=== PATIENT | female | born 1985 | race Caucasian/White ===

== ENCOUNTER 2020-04-30 12:43 | Emergency (ER) | payer MEDICAID, SELFPAY ==
[~2020-04-30] VITALS: Ht 162.6 cm; Wt 170.1 kg
[2020-04-30 12:53] VITALS: BP 139/70
[2020-04-30 14:30] VITALS: BP 139/70
== END 2020-04-30 14:30 | disposition home or self-care (01) ==
LOC: MED 12:43 → EEVIPCON 12:43 → MED 14:30
DX: U07.1 COVID-19 (principal); I10 Essential (primary) hypertension; E11.9 Type 2 diabetes mellitus without complications
CPT/HCPCS: 99283; U0003

== ENCOUNTER 2022-09-22 13:27 | Emergency (ER) | payer MEDICAID ==
[~2022-09-22] VITALS: Ht 157.5 cm; Wt 179.6 kg
[2022-09-22 13:28] VITALS: BP 118/78
--- NOTE | 2022-09-22 13:30 | NUR ---
36/F BIBA FROM HOME C/O SOB X 5DAYS. PT STATES GENERALIZED BODYACHE. PT REPORTS TESTING POSITIVE FOR COVID 5 DAYS AGO. PT DENIES COUGH OR FEVER. AFEBRILE AT TRIAGE. VITALS STABLE. AAO4. PMH:CARI DOSHI
[2022-09-22] MEDS ORDERED: PROM118S5 PO (14:46)
[2022-09-22] MEDS ORDERED: LIDO100S PO (14:46)
[2022-09-22] MEDS ORDERED: IBUP-2213 PO (14:46)
[2022-09-22] MEDS ORDERED: ALBU0.0912 IH (14:46)
== END 2022-09-22 14:50 | disposition home or self-care (01) ==
LOC: MED 13:27
DX: U07.1 COVID-19 (principal); J06.9 Acute upper respiratory infection, unspecified
CPT/HCPCS: 93005; 99283

== ENCOUNTER 2023-01-05 14:06 | Emergency (ER) | payer MEDICAID ==
[~2023-01-05] VITALS: Ht 167.6 cm; Wt 167.8 kg
[~2023-01-05 14:06] MED LIST: ALBU0.0912 IH; IBUP-2213 PO; LIDO100S PO; PROM118S5 PO
[2023-01-05 14:33] VITALS: BP 125/78
[2023-01-05] MEDS ORDERED: CARB15DR61 OT (14:51)
--- NOTE | 2023-01-05 16:21 | NUR ---
L EAR IRRIGATED WITH SOLUTION OF NORMAL SALINE x HYDROGEN PEROXIDE
--- NOTE | 2023-01-05 16:23 | NUR ---
Patient discharged with v/s stable. Written and verbal after care instructions ABOUT [facility] [employer] given and explained. Patient alert, oriented and verbalized understanding of instructions. Ambulatory with steady gait. All questions addressed prior to discharge. ID band removed. Patient advised to follow up with PMD. Rx of DECROB 6.5% OTIC given. Patient educated on indication of medication including possible reaction and side effects. Opportunity to ask questions provided and answered.
== END 2023-01-05 16:23 | disposition home or self-care (01) ==
LOC: MED 14:06
DX: H61.22 Impacted cerumen, left ear (principal); E11.9 Type 2 diabetes mellitus without complications; I10 Essential (primary) hypertension; E03.9 Hypothyroidism, unspecified; Z79.4 Long term (current) use of insulin; Z79.899 Other long term (current) drug therapy
CPT/HCPCS: 99282

== ENCOUNTER 2023-07-02 10:00 | Inpatient (IN) | payer MEDICAID ==
[~2023-07-02] VITALS: Ht 157.5 cm; Wt 176.9 kg
[~2023-07-02 10:00] MED LIST changes: +CARB15DR61 OT
[2023-07-02 10:06] VITALS: BP 85/41; PULSE 47; RESP 18; TEMP 98.4; O2SAT 98
[2023-07-02] MEDS ORDERED: METOCLOPRAMIDE 10 MG/2 ML INJ VIAL IVP ONE (10:35)
[2023-07-02] MEDS ORDERED: NACL 0.9% 1,000 ML IV ONE ×3 (10:35→14:35)
[2023-07-02] MEDS ORDERED: KETOROLAC 30 MG/ML VIAL IVP ONE (10:35)
[2023-07-02] MEDS ORDERED: ATROPINE 0.4 MG/ML VIAL IVP ONE (11:45)
[2023-07-02] MEDS ORDERED: INTUBATION KIT MC ONE (11:48)
[2023-07-02 12:18] LABS: BASOPHILS # (AUTO) 0.1 K/uL (0.00-0.22); BASOPHILS % (AUTO) 0.6 % (0.0-2.0); EOSINOPHILS # (AUTO) 0.1 K/uL (0-0.4); EOSINOPHILS % (AUTO) 1.1 % (0.0-4.0); HEMATOCRIT 44.7 % (36-48); HEMOGLOBIN 14.7 g/dL (12.0-16.0); LYMPHOCYTES # (AUTO) 2.8 K/uL (2.5-16.5); MEAN CORPUSCULAR HEMOGLOBIN 32 pg (27-31); MEAN CORPUSCULAR HGB CONC 33 g/dL (33-37); MEAN CORPUSCULAR VOLUME 97.5 fL (80-94); MONOCYTES # (AUTO) 0.8 K/uL (0.8-1.0); MONOCYTES % (AUTO) 8.6 % (1.7-9.3); NEUTROPHILS # (AUTO) 5.5 K/uL (1.8-7.7); NEUTROPHILS % (AUTO) 59.7 % (42.2-75.2); PLATELET COUNT (AUTO) 146 K/uL (140-450); RED BLOOD CELL COUNT(AUTO) 4.58 MIL/uL (4.20-5.40); RED CELL DISTRIBUTION WIDTH 14.8 % (11.6-13.7); WHITE BLOOD COUNT (AUTO) 9.2 K/uL (4.8-10.8)
[2023-07-02 13:01] LABS: ANION GAP 12.8 (8-16); CALCIUM 9.7 mg/dL (8.5-10.1); CARBON DIOXIDE 27.5 mmol/L (21-32); POTASSIUM 5.3 mmol/L (3.5-5.1)
[2023-07-02 13:52] LABS: MAGNESIUM 1.8 mg/dL (1.8-2.4); PHOSPHORUS 3.4 mg/dL (2.5-4.9)
[2023-07-02] MEDS ORDERED: DOCUSATE SODIUM 100 MG GELCAP PO PRN (15:55)
[2023-07-02] MEDS ORDERED: ZOLPIDEM 5 MG TAB PO PRN (15:55)
[2023-07-02] MEDS ORDERED: ONDANSETRON 4 MG/2 ML VIAL IM/IVP PRN (15:55)
[2023-07-02] MEDS ORDERED: guaiFENesin DM 200/20 MG-10 ML 10 ML UDC PO PRN (15:55)
[2023-07-02] MEDS ORDERED: ACETAMINOPHEN 325 MG TAB PO PRN (15:55)
[2023-07-02 16:43] LABS: INR 1.05 (0.8-1.2)
[2023-07-02 16:44] VITALS: PULSE 52; RESP 20; O2SAT 98
[2023-07-02 16:44] LABS: CHOL/HDL RATIO 4.2 (1-4.5); FREE T4 (FREE THYROXINE) 0.12 ng/dL (0.76-1.46); MAGNESIUM 1.6 mg/dL (1.8-2.4); THYROID STIMULATING HORMONE 28.97 uIU/mL (0.34-3.74)
[2023-07-02] MEDS: HYDROcodone/APAP 7.5/325 MG 1 TAB PO PRN (17:11)
[2023-07-02] MEDS: NACL 0.9% 1,000 ML IV SCH (17:12)
[2023-07-02 18:42] VITALS: BP 106/62; PULSE 63; RESP 12; TEMP 96.5; O2SAT 96
[2023-07-02] MEDS ORDERED: DEXTROSE 50% 50 ML SYR IVP PRN (19:00)
[2023-07-02] MEDS: INSULIN LISPRO SLIDING SCALE 100 UNITS/ML VIAL SUBQ PRN (19:04)
[2023-07-02 19:45] VITALS: PULSE 54; RESP 18; O2SAT 97
[2023-07-02 20:00] VITALS: BP 119/61; PULSE 52; RESP 12; RESP 14; TEMP 96.5; O2SAT 96
[2023-07-02] MEDS: BLOOD GLUCOSE MONITORING 1 DEV DEV FS SCH (21:09)
[2023-07-02] MEDS ORDERED: MAG SULF 2000 MG/WATER PREMIX 50 ML IV ONE (21:35)
[2023-07-02 22:00] VITALS: BP 96/68; PULSE 47; RESP 21; O2SAT 97
[2023-07-03] VITALS (16 sets, daily range): BP systolic 96–126; BP diastolic 49–86; PULSE 45–64; RESP 12–29; TEMP 96–98.7; O2SAT 95–99
[2023-07-03] MEDS: NACL 0.9% 1,000 ML IV SCH ×3 (04:05→21:55)
[2023-07-03 05:17] LABS: BASOPHILS % (AUTO) 0.6 % (0.0-2.0); EOSINOPHILS # (AUTO) 0.1 K/uL (0-0.4); EOSINOPHILS % (AUTO) 1.6 % (0.0-4.0); HEMATOCRIT 41.7 % (36-48); HEMOGLOBIN 13.7 g/dL (12.0-16.0); LYMPHOCYTES # (AUTO) 2.3 K/uL (2.5-16.5); LYMPHOCYTES % (AUTO) 33.5 % (20.5-51.1); MEAN CORPUSCULAR HEMOGLOBIN 32 pg (27-31); MEAN CORPUSCULAR HGB CONC 33 g/dL (33-37); MEAN CORPUSCULAR VOLUME 96.5 fL (80-94); MONOCYTES # (AUTO) 0.6 K/uL (0.8-1.0); MONOCYTES % (AUTO) 9.2 % (1.7-9.3); NEUTROPHILS # (AUTO) 3.8 K/uL (1.8-7.7); NEUTROPHILS % (AUTO) 55.1 % (42.2-75.2); PLATELET COUNT (AUTO) 146 K/uL (140-450); RED BLOOD CELL COUNT(AUTO) 4.32 MIL/uL (4.20-5.40); WHITE BLOOD COUNT (AUTO) 6.9 K/uL (4.8-10.8)
[2023-07-03 05:36] LABS: ANION GAP 10.1 (8-16); CALCIUM 8.6 mg/dL (8.5-10.1); CARBON DIOXIDE 28.6 mmol/L (21-32); CREATININE 0.8 mg/dL (0.6-1.3); POTASSIUM 3.7 mmol/L (3.5-5.1)
[2023-07-03] MEDS ORDERED: POTASSIUM CHLORIDE 10 MEQ TABER PO PRN (06:00)
[2023-07-03] MEDS: BLOOD GLUCOSE MONITORING 1 DEV DEV FS SCH ×4 (08:43→21:10)
[2023-07-03] MEDS ORDERED: PANTOPRAZOLE 40 MG TABEC PO SCH (09:00)
[2023-07-03] MEDS ORDERED: ATROPINE 0.4 MG/ML VIAL IVP PRN (09:40)
[2023-07-03] MEDS ORDERED: MAGNESIUM OXIDE 400 MG TAB PO SCH (10:35)
[2023-07-03] MEDS ORDERED: LEVOTHYROXINE SODIUM 100 MCG VIAL IV SCH (10:40)
[2023-07-03 10:53] LABS: BILIRUBIN,URINE NEGATIVE (NEGATIVE); COLOR,URINE YELLOW (YELLOW); LEUKOCYTE ESTERASE ,URINE 2+ (NEGATIVE); NITRITE, URINE POSITIVE (NEGATIVE); PROTEIN,URINE 1+ (NEGATIVE); UGLUCOSE NEGATIVE (NEGATIVE); UROBILINOGEN,URINE 0.2 EU/dL (0.2 - 1)
[2023-07-03 10:54] LABS: APPEARANCE,URINE HAZY (CLEAR)
[2023-07-03 11:07] LABS: BACTERIA,URINE 1+ /HPF (None Seen); SQUAMOUS EPITHELIAL CELL,UR 0-3 (FEW) /LPF (0-3 (FEW)); WBC,URINE 60-80 /HPF (0-5)
[2023-07-03 11:09] LABS: BLOOD, URINE 1+ (NEGATIVE)
[2023-07-03 11:10] LABS: AMPHETAMINE, URINE NEGATIVE ng/ml (NEG <=1000); BARBITURATE, URINE NEGATIVE ng/ml (NEG <=200); BENZODIAZEPINE, URINE NEGATIVE ng/mL (NEG <=200); CANNABINOID, URINE NEGATIVE ng/mL (NEG <=50); COCAINE, URINE NEGATIVE ng/mL (NEG <=300); OPIATE, URINE POSITIVE ng/mL (NEG <=2000); PHENCYCLIDINE SCREEN,URINE NEGATIVE ng/mL (NEG <=25)
[2023-07-03] MEDS: INSULIN LISPRO SLIDING SCALE 100 UNITS/ML VIAL SUBQ PRN ×3 (12:56→21:12)
[2023-07-03] MEDS ORDERED: SIMETHICONE 80 MG TAB.CHEW PO PRN (16:50)
[2023-07-03] MEDS: HYDROcodone/APAP 7.5/325 MG 1 TAB PO PRN ×2 (18:57→20:30)
[2023-07-03] MEDS ORDERED: MORPHINE SULFATE 2 MG/ML SYR IVP ONE (23:10)
[2023-07-04] MEDS ORDERED: LEVOTHYROXINE SODIUM 100 MCG VIAL IV SCH (09:00)
== END 2023-07-03 23:40 | disposition short-term general hospital (02) | DRG 54 ==
LOC: MED 10:00 → MTU 15:55 → EEVIPCON 15:55 → MIC 16:10
PROVIDERS: ADMIT Family Medicine; ATTEND Family Medicine
DX: G43.909 Migraine, unspecified, not intractable, without status migrainosus (principal); Z68.45 Body mass index [BMI] 70 or greater, adult; E87.5 Hyperkalemia; E03.9 Hypothyroidism, unspecified; E11.9 Type 2 diabetes mellitus without complications; I10 Essential (primary) hypertension; G47.33 Obstructive sleep apnea (adult) (pediatric); E83.42 Hypomagnesemia; E66.01 Morbid (severe) obesity due to excess calories; Z79.1 Long term (current) use of non-steroidal anti-inflammatories (NSAID); Z79.899 Other long term (current) drug therapy; Z91.148 Patient's other noncompliance with medication regimen for other reason
CPT/HCPCS: 36415; 70450; 71045; 80048; 80305; 81001; 82150; 82948; 83690; 83735; 83880; 84100; 84436; 84439; 84443; 84479; 84484; 85025; 85610; 85730; 87081; 87086; 93005; 96374; 96375; 99285; J0461; J1815; J1885; J2270; J2765; J3475

== ENCOUNTER 2024-07-10 20:33 | Emergency (ER) | payer MEDICAID ==
[~2024-07-10] VITALS: Ht 165.1 cm; Wt 188.2 kg
[2024-07-10 21:03] VITALS: BP 118/81; PULSE 75; RESP 18; TEMP 98; O2SAT 98
[2024-07-10] MEDS ORDERED: CEPH500C16 PO (22:03)
[2024-07-10] MEDS ORDERED: BACI-418 TP (22:03)
[2024-07-10] MEDS: BACITRACIN OINT 500 UNITS/GM PKT TP ONE (22:09)
[2024-07-10] MEDS: cephALEXin 500 MG CAP PO ONE (22:17)
== END 2024-07-10 22:17 | disposition home or self-care (01) ==
LOC: MED 20:33
DX: L89.890 Pressure ulcer of other site, unstageable (principal); E11.9 Type 2 diabetes mellitus without complications; I10 Essential (primary) hypertension; Z86.39 Personal history of other endocrine, nutritional and metabolic disease; Z79.899 Other long term (current) drug therapy
CPT/HCPCS: 10061; 99284